=== PATIENT | male | born 1960 | race Two or more races ===

== ENCOUNTER 2018-01-10 10:39 | Emergency (ER) | payer OTHER ==
[~2018-01-10] VITALS: Ht 165.1 cm; Wt 102.1 kg
[2018-01-10 10:50] VITALS: BP 143/88
--- NOTE | 2018-01-10 11:10 | NUR ---
57/M PRESENT TO ER C/O RT EYE IRRITATION AND FOLLOW UP x YESTERDAY @ 1100. PT STATES HE ACCIDENTALLY GOT RADIATOR FLUID ON HIS EYES YESTERDAY AROUND 1100. PT STATES HE WAS SEEN IN URGENT CARE YESTERDAY FOR SAME S/SX AND WAS SENT HOME WITH "EYE DROPS AND TOPICAL CREAM MEDICATION" AND EYE IRRIGATION DONE AT URGENT CARE. PT STS HE "FEELS A LOT BETTER". WENT HERE FOR FOLLOW UP. PT DENIES ANY CHANGES IN VISION OR PAIN. REDNESS NOTED TO FOREHEAD AND PERIORBITAL AREA AND NOSE. PT IS AOX4 WITH STEADY GAIT. RR ARE EVEN AND UNLABORED. NO ACUTE DISTRESS. ER MD CORADO BY BEDSIDE EXAMINING PT. ALL NEEDS MET AT THIS TIME. WILL CONTINUE TO MONITOR.
[2018-01-10 11:30] VITALS: BP 139/88
--- NOTE | 2018-01-10 11:39 | NUR ---
Patient discharged with v/s stable. Written and verbal after care instructions given and explained. Patient verbalized understanding. Ambulatory with steady gait. All questions addressed prior to discharge. Advised to follow up with PMD.
== END 2018-01-10 11:39 | disposition home or self-care (01) ==
LOC: MED 10:39
DX: Z77.098 Contact with and (suspected) exposure to other hazardous, chiefly nonmedicinal, chemicals (principal); H57.8 Other specified disorders of eye and adnexa
CPT/HCPCS: 99281

== ENCOUNTER 2023-06-27 09:23 | Inpatient (IN) | payer OTHER ==
[~2023-06-27] VITALS: Ht 165.1 cm; Wt 110.2 kg
[2023-06-27 09:31] VITALS: BP 153/100; PULSE 99; RESP 18; TEMP 98.2; O2SAT 98
[2023-06-27 10:22] LABS: BASOPHILS % (AUTO) 0.2 % (0.0-2.0); EOSINOPHILS % (AUTO) 0.1 % (0.0-4.0); HEMATOCRIT 47.4 % (36-52); HEMOGLOBIN 15.9 g/dL (12.0-18.0); LYMPHOCYTES # (AUTO) 1.1 K/uL (2.0-11.5); LYMPHOCYTES % (AUTO) 11.9 % (20.5-51.1); MEAN CORPUSCULAR HEMOGLOBIN 28 pg (27-31); MEAN CORPUSCULAR HGB CONC 34 g/dL (33-37); MEAN CORPUSCULAR VOLUME 83.9 fL (80-94); MONOCYTES # (AUTO) 0.9 K/uL (0.8-1.0); MONOCYTES % (AUTO) 10.2 % (1.7-9.3); NEUTROPHILS # (AUTO) 6.9 K/uL (1.8-7.7); NEUTROPHILS % (AUTO) 77.6 % (42.2-75.2); PLATELET COUNT (AUTO) 319 K/uL (140-450); RED BLOOD CELL COUNT(AUTO) 5.65 MIL/uL (4.20-6.10); RED CELL DISTRIBUTION WIDTH 15.5 % (11.6-13.7); WHITE BLOOD COUNT (AUTO) 8.9 K/uL (4.8-10.8)
[2023-06-27 10:34] LABS: ALBUMIN 3.5 g/dL (3.4-5.0); ANION GAP 14.5 (8-16); CALCIUM 8.6 mg/dL (8.5-10.1); CARBON DIOXIDE 24.6 mmol/L (21-32); POTASSIUM 3.1 mmol/L (3.5-5.1); TOTAL BILIRUBIN 1.1 mg/dL (0.0-1.0)
[2023-06-27] MEDS ORDERED: MAG SULF 2000 MG/WATER PREMIX 50 ML IV PRN (13:20)
[2023-06-27] MEDS ORDERED: ZOLPIDEM 5 MG TAB PO PRN (13:20)
[2023-06-27] MEDS ORDERED: MORPHINE SULFATE 4 MG/ML SYR IVP PRN (13:20)
[2023-06-27] MEDS ORDERED: ACETAMINOPHEN 325 MG TAB PO PRN (13:20)
[2023-06-27] MEDS ORDERED: POTASSIUM CHLORIDE 10 MEQ TABER PO PRN (13:20)
[2023-06-27] MEDS ORDERED: HYDROcodone/APAP 5/325 MG 1 TAB TAB PO PRN (13:20)
[2023-06-27] MEDS ORDERED: MAGNESIUM OXIDE 400 MG TAB PO PRN (13:20)
[2023-06-27] MEDS ORDERED: KCL 20 MEQ IN 100 mL PREMIX 200 ML IV PRN (13:20)
[2023-06-27] MEDS ORDERED: ONDANSETRON 4 MG/2 ML VIAL IVP PRN (13:20)
[2023-06-27] MEDS: NACL 0.9% 1,000 ML IV SCH (13:37)
[2023-06-27 15:30] VITALS: PULSE 94; RESP 19; O2SAT 95
[2023-06-27 18:02] LABS: APPEARANCE,URINE CLEAR (CLEAR); BILIRUBIN,URINE NEGATIVE (NEGATIVE); BLOOD, URINE TRACE-I (NEGATIVE); COLOR,URINE YELLOW (YELLOW); LEUKOCYTE ESTERASE ,URINE NEGATIVE (NEGATIVE); NITRITE, URINE NEGATIVE (NEGATIVE); PROTEIN,URINE NEGATIVE (NEGATIVE); UGLUCOSE NEGATIVE (NEGATIVE); UROBILINOGEN,URINE 0.2 EU/dL (0.2 - 1)
[2023-06-27 18:20] LABS: BACTERIA,URINE FEW /HPF (None Seen); MUCUS,URINE None Seen /LPF (None Seen); RBC,URINE 0-5 /HPF (0-5); SQUAMOUS EPITHELIAL CELL,UR 0-3 (FEW) /LPF (0-3 (FEW)); TRICHOMONAS,URINE None Seen /HPF (None Seen); WBC,URINE 0-5 /HPF (0-5); WHITE BLOOD CELL CASTS,URINE None Seen /LPF (None Seen); YEAST,URINE None Seen /HPF (None Seen)
[2023-06-27] MEDS ORDERED: KCL 20 MEQ IN 100 mL PREMIX 200 ML IV SCH (18:50)
[2023-06-27 19:15] LABS: INR 1.02 (0.8-1.2); PARTIAL THROMBOPLASTIN TIME 32.1 secs (22-35.6); PROTHROMBIN TIME 10.7 secs (10.8-13.4)
[2023-06-27 20:00] VITALS: BP 138/89; PULSE 78; RESP 18; TEMP 98.6; O2SAT 97
[2023-06-27] MEDS: metroNIDAZOLE 500 MG/NS PREMIX 100 ML IV SCH (22:46)
[2023-06-28] VITALS (7 sets, daily range): BP systolic 117–139; BP diastolic 82–98; PULSE 72–94; RESP 17–19; TEMP 97.4–98.8; O2SAT 94–97
[2023-06-28] MEDS: NACL 0.9% 1,000 ML IV SCH ×2 (01:50→03:11)
[2023-06-28] MEDS: metroNIDAZOLE 500 MG/NS PREMIX 100 ML IV SCH ×3 (05:48→21:30)
[2023-06-28 06:59] LABS: ANION GAP 13.2 (8-16); CALCIUM 7.6 mg/dL (8.5-10.1); CARBON DIOXIDE 23.1 mmol/L (21-32); CREATININE 0.9 mg/dL (0.6-1.3); MAGNESIUM 2.1 mg/dL (1.8-2.4); PHOSPHORUS 2.8 mg/dL (2.5-4.9); POTASSIUM 3.3 mmol/L (3.5-5.1)
[2023-06-28 07:22] LABS: BASOPHILS % (AUTO) 0.3 % (0.0-2.0); EOSINOPHILS % (AUTO) 0.2 % (0.0-4.0); HEMATOCRIT 43.1 % (36-52); HEMOGLOBIN 14.1 g/dL (12.0-18.0); LYMPHOCYTES # (AUTO) 0.9 K/uL (2.0-11.5); LYMPHOCYTES % (AUTO) 13.2 % (20.5-51.1); MEAN CORPUSCULAR HEMOGLOBIN 28 pg (27-31); MEAN CORPUSCULAR HGB CONC 33 g/dL (33-37); MEAN CORPUSCULAR VOLUME 84.3 fL (80-94); MONOCYTES # (AUTO) 0.9 K/uL (0.8-1.0); MONOCYTES % (AUTO) 12.3 % (1.7-9.3); NEUTROPHILS # (AUTO) 5.2 K/uL (1.8-7.7); PLATELET COUNT (AUTO) 271 K/uL (140-450); RED BLOOD CELL COUNT(AUTO) 5.11 MIL/uL (4.20-6.10); RED CELL DISTRIBUTION WIDTH 15.3 % (11.6-13.7)
[2023-06-28] MEDS ORDERED: BUPIVACAINE-MPF 0.25% 30 ML VIAL INJ ONE (13:41)
[2023-06-28] MEDS ORDERED: LIDOCAINE/EPI MPF 1%1:200000 30 ML VIAL INJ ONE (14:59)
[2023-06-28] MEDS ORDERED: ONDANSETRON 4 MG/2 ML VIAL ONE (15:15)
[2023-06-28] MEDS ORDERED: SUCCINYLCHOLINE CHLORIDE 200 MG/10 ML VIAL IVP ONE ×2 (15:15→15:43)
[2023-06-28] MEDS ORDERED: SUGAMMADEX SODIUM 200 MG/2 ML VIAL IV ONE ×2 (15:15→17:34)
[2023-06-28] MEDS ORDERED: DEXAMETHASONE 4 MG/ML VIAL ONE ×2 (15:15→15:43)
[2023-06-28] MEDS ORDERED: HYDROmorphone PFS 2 MG/ML SYR ONE ×3 (15:15→16:50)
[2023-06-28] MEDS ORDERED: ceFAZolin 2,000 MG VIAL ONE (15:15)
[2023-06-28] MEDS ORDERED: fentaNYL citrate 0.05 MG/ML - 50mL vial IV ONE (15:15)
[2023-06-28] MEDS ORDERED: ROCURONIUM 50 MG/5 ML VIAL IV ONE ×3 (15:15→15:44)
[2023-06-28] MEDS ORDERED: DESFLURANE 240 ML BTL INH ONE (15:15)
[2023-06-28] MEDS ORDERED: PROPOFOL 200 MG/20 ML VIAL IV ONE ×2 (15:15→15:43)
[2023-06-28] MEDS ORDERED: fentaNYL citrate 0.05 MG/ML VIAL ONE (15:40)
[2023-06-28] MEDS ORDERED: LABETALOL 20 MG/4 ML VIAL IVP ONE (15:53)
[2023-06-28] MEDS: HYDROmorphone 1 MG/ML AMP IVP PRN (18:48)
[2023-06-28] MEDS: LACTATED RINGERS 1,000 ML IV SCH (18:50)
[2023-06-28 18:57] LABS: BASOPHILS % (AUTO) 0.1 % (0.0-2.0); HEMOGLOBIN 13.7 g/dL (12.0-18.0); LYMPHOCYTES # (AUTO) 0.5 K/uL (2.0-11.5); LYMPHOCYTES % (AUTO) 6.1 % (20.5-51.1); MEAN CORPUSCULAR HEMOGLOBIN 28 pg (27-31); MEAN CORPUSCULAR HGB CONC 33 g/dL (33-37); MEAN CORPUSCULAR VOLUME 84.8 fL (80-94); MONOCYTES # (AUTO) 0.4 K/uL (0.8-1.0); MONOCYTES % (AUTO) 4.6 % (1.7-9.3); NEUTROPHILS # (AUTO) 7.5 K/uL (1.8-7.7); NEUTROPHILS % (AUTO) 89.2 % (42.2-75.2); PLATELET COUNT (AUTO) 309 K/uL (140-450); RED BLOOD CELL COUNT(AUTO) 4.95 MIL/uL (4.20-6.10); RED CELL DISTRIBUTION WIDTH 15.6 % (11.6-13.7); WHITE BLOOD COUNT (AUTO) 8.4 K/uL (4.8-10.8)
[2023-06-28 19:05] LABS: ANION GAP 12.2 (8-16); CALCIUM 7.3 mg/dL (8.5-10.1); CARBON DIOXIDE 22.6 mmol/L (21-32); CREATININE 0.9 mg/dL (0.6-1.3); POTASSIUM 3.8 mmol/L (3.5-5.1)
[2023-06-28] MEDS ORDERED: ACETAMINOPHEN EXTRA STRENGTH 500 MG TAB PO SCH (21:00)
[2023-06-28] MEDS ORDERED: KETOROLAC 15 MG/ML VIAL IVP SCH (21:00)
[2023-06-28] MEDS: KETOROLAC 15 MG/ML VIAL IVP SCH (21:30)
[2023-06-29] VITALS (23 sets, daily range): BP systolic 114–146; BP diastolic 45–89; PULSE 70–97; RESP 13–27; TEMP 97.4–98.5; O2SAT 94–100
[2023-06-29] MEDS ORDERED: KETOROLAC 15 MG/ML VIAL IVP SCH ×2
[2023-06-29] MEDS: HYDROmorphone 1 MG/ML AMP IVP PRN ×2 (00:28→10:40)
[2023-06-29] MEDS: metroNIDAZOLE 500 MG/NS PREMIX 100 ML IV SCH ×3 (04:30→21:30)
[2023-06-29] MEDS: LACTATED RINGERS 1,000 ML IV SCH ×2 (04:30→14:28)
[2023-06-29] MEDS: KETOROLAC 15 MG/ML VIAL IVP SCH ×3 (04:32→21:34)
[2023-06-29 06:17] LABS: BASOPHILS % (AUTO) 0.1 % (0.0-2.0); HEMATOCRIT 38.7 % (36-52); HEMOGLOBIN 12.9 g/dL (12.0-18.0); LYMPHOCYTES # (AUTO) 0.5 K/uL (2.0-11.5); LYMPHOCYTES % (AUTO) 5.3 % (20.5-51.1); MEAN CORPUSCULAR HEMOGLOBIN 28 pg (27-31); MEAN CORPUSCULAR HGB CONC 33 g/dL (33-37); MEAN CORPUSCULAR VOLUME 84.7 fL (80-94); MONOCYTES # (AUTO) 0.9 K/uL (0.8-1.0); NEUTROPHILS # (AUTO) 7.4 K/uL (1.8-7.7); NEUTROPHILS % (AUTO) 84.6 % (42.2-75.2); PLATELET COUNT (AUTO) 261 K/uL (140-450); RED BLOOD CELL COUNT(AUTO) 4.57 MIL/uL (4.20-6.10); RED CELL DISTRIBUTION WIDTH 15.2 % (11.6-13.7); WHITE BLOOD COUNT (AUTO) 8.7 K/uL (4.8-10.8)
[2023-06-29 06:31] LABS: ANION GAP 13.3 (8-16); CALCIUM 7.4 mg/dL (8.5-10.1); CARBON DIOXIDE 23.8 mmol/L (21-32); CREATININE 0.9 mg/dL (0.6-1.3); POTASSIUM 4.1 mmol/L (3.5-5.1)
[2023-06-29 06:46] LABS: MAGNESIUM 1.9 mg/dL (1.8-2.4); PHOSPHORUS 3.4 mg/dL (2.5-4.9)
[2023-06-29] MEDS: ENOXAPARIN 40 MG/0.4 ML SYR SUBQ SCH (10:10)
[2023-06-29] MEDS: GABAPENTIN 300 MG CAP PO SCH ×3 (10:11→17:16)
[2023-06-29 16:06] LABS: BASOPHILS % (AUTO) 0.1 % (0.0-2.0); EOSINOPHILS % (AUTO) 0.1 % (0.0-4.0); HEMOGLOBIN 12.5 g/dL (12.0-18.0); LYMPHOCYTES # (AUTO) 0.8 K/uL (2.0-11.5); LYMPHOCYTES % (AUTO) 10.7 % (20.5-51.1); MEAN CORPUSCULAR HEMOGLOBIN 28 pg (27-31); MEAN CORPUSCULAR HGB CONC 33 g/dL (33-37); MEAN CORPUSCULAR VOLUME 84.7 fL (80-94); MONOCYTES # (AUTO) 0.8 K/uL (0.8-1.0); MONOCYTES % (AUTO) 11.1 % (1.7-9.3); NEUTROPHILS # (AUTO) 5.8 K/uL (1.8-7.7); PLATELET COUNT (AUTO) 295 K/uL (140-450); RED BLOOD CELL COUNT(AUTO) 4.49 MIL/uL (4.20-6.10); RED CELL DISTRIBUTION WIDTH 15.5 % (11.6-13.7); WHITE BLOOD COUNT (AUTO) 7.4 K/uL (4.8-10.8)
[2023-06-30] VITALS (13 sets, daily range): BP systolic 122–155; BP diastolic 64–109; PULSE 72–103; RESP 17–21; TEMP 97–99.3; O2SAT 92–98
[2023-06-30] MEDS: LACTATED RINGERS 1,000 ML IV SCH (04:00)
[2023-06-30] MEDS: metroNIDAZOLE 500 MG/NS PREMIX 100 ML IV SCH ×3 (04:24→21:44)
[2023-06-30 05:56] LABS: BASOPHILS % (AUTO) 0.2 % (0.0-2.0); EOSINOPHILS % (AUTO) 0.2 % (0.0-4.0); HEMATOCRIT 35.5 % (36-52); HEMOGLOBIN 11.8 g/dL (12.0-18.0); LYMPHOCYTES # (AUTO) 0.8 K/uL (2.0-11.5); LYMPHOCYTES % (AUTO) 11.4 % (20.5-51.1); MEAN CORPUSCULAR HEMOGLOBIN 28 pg (27-31); MEAN CORPUSCULAR HGB CONC 33 g/dL (33-37); MEAN CORPUSCULAR VOLUME 84.5 fL (80-94); MONOCYTES # (AUTO) 0.7 K/uL (0.8-1.0); MONOCYTES % (AUTO) 10.2 % (1.7-9.3); NEUTROPHILS # (AUTO) 5.5 K/uL (1.8-7.7); PLATELET COUNT (AUTO) 287 K/uL (140-450); RED CELL DISTRIBUTION WIDTH 15.8 % (11.6-13.7); WHITE BLOOD COUNT (AUTO) 7.1 K/uL (4.8-10.8)
[2023-06-30] MEDS: KETOROLAC 15 MG/ML VIAL IVP SCH ×3 (06:13→21:44)
[2023-06-30 06:29] LABS: ANION GAP 11.3 (8-16); CALCIUM 7.6 mg/dL (8.5-10.1); POTASSIUM 3.3 mmol/L (3.5-5.1)
[2023-06-30 06:36] LABS: MAGNESIUM 2.1 mg/dL (1.8-2.4); PHOSPHORUS 2.2 mg/dL (2.5-4.9)
[2023-06-30] MEDS: POTASSIUM CHL 20 MEQ/D5-1/2NS 1,000 ML IV SCH ×2 (06:45→16:30)
[2023-06-30] MEDS ORDERED: KCL 20 MEQ IN 100 mL PREMIX 200 ML IV ONE (06:50)
[2023-06-30] MEDS: GABAPENTIN 300 MG CAP PO SCH ×3 (09:31→16:40)
[2023-06-30] MEDS: ENOXAPARIN 40 MG/0.4 ML SYR SUBQ SCH (09:33)
[2023-06-30] MEDS: HYDROmorphone 1 MG/ML AMP IVP PRN (11:43)
[2023-07-01] VITALS (7 sets, daily range): BP systolic 118–136; BP diastolic 69–86; PULSE 75–105; RESP 18–19; TEMP 98.3–98.8; O2SAT 95–98
[2023-07-01] MEDS: KETOROLAC 15 MG/ML VIAL IVP SCH ×3 (05:47→20:20)
[2023-07-01] MEDS: metroNIDAZOLE 500 MG/NS PREMIX 100 ML IV SCH ×3 (05:47→20:20)
[2023-07-01] MEDS: POTASSIUM CHL 20 MEQ/D5-1/2NS 1,000 ML IV SCH ×3 (05:48→17:07)
[2023-07-01 06:33] LABS: BASOPHILS % (AUTO) 0.5 % (0.0-2.0); EOSINOPHILS # (AUTO) 0.2 K/uL (0-0.4); EOSINOPHILS % (AUTO) 2.2 % (0.0-4.0); HEMATOCRIT 31.9 % (36-52); HEMOGLOBIN 10.5 g/dL (12.0-18.0); LYMPHOCYTES % (AUTO) 14.8 % (20.5-51.1); MEAN CORPUSCULAR HEMOGLOBIN 28 pg (27-31); MEAN CORPUSCULAR HGB CONC 33 g/dL (33-37); MEAN CORPUSCULAR VOLUME 84.3 fL (80-94); MONOCYTES # (AUTO) 0.7 K/uL (0.8-1.0); NEUTROPHILS # (AUTO) 5.1 K/uL (1.8-7.7); NEUTROPHILS % (AUTO) 72.5 % (42.2-75.2); PLATELET COUNT (AUTO) 289 K/uL (140-450); RED BLOOD CELL COUNT(AUTO) 3.78 MIL/uL (4.20-6.10); RED CELL DISTRIBUTION WIDTH 15.4 % (11.6-13.7)
[2023-07-01 06:57] LABS: ANION GAP 12.2 (8-16); CALCIUM 7.2 mg/dL (8.5-10.1); CREATININE 0.8 mg/dL (0.6-1.3); POTASSIUM 3.2 mmol/L (3.5-5.1)
[2023-07-01 07:07] LABS: MAGNESIUM 1.9 mg/dL (1.8-2.4); PHOSPHORUS 2.3 mg/dL (2.5-4.9)
[2023-07-01] MEDS: GABAPENTIN 300 MG CAP PO SCH ×3 (08:19→17:07)
[2023-07-01] MEDS: ENOXAPARIN 40 MG/0.4 ML SYR SUBQ SCH (08:25)
[2023-07-01] MEDS ORDERED: GAUZE TP PRN (11:05)
[2023-07-01] MEDS: GAUZE TP SCH (13:06)
[2023-07-01] MEDS ORDERED: GABA300C55 PO (15:32)
[2023-07-01] MEDS ORDERED: AMOX-999 PO (15:34)
[2023-07-02] VITALS: BP 137/86; PULSE 102; PULSE 92; RESP 18; TEMP 97.9; O2SAT 98
[2023-07-02 04:00] VITALS: BP 127/88; PULSE 78; PULSE 81; RESP 18; TEMP 97.8; O2SAT 100
[2023-07-02] MEDS: metroNIDAZOLE 500 MG/NS PREMIX 100 ML IV SCH (04:53)
[2023-07-02] MEDS: KETOROLAC 15 MG/ML VIAL IVP SCH ×2 (04:54→12:28)
[2023-07-02 06:30] LABS: BASOPHILS % (AUTO) 0.6 % (0.0-2.0); EOSINOPHILS # (AUTO) 0.2 K/uL (0-0.4); EOSINOPHILS % (AUTO) 2.8 % (0.0-4.0); HEMATOCRIT 33.8 % (36-52); LYMPHOCYTES % (AUTO) 14.2 % (20.5-51.1); MEAN CORPUSCULAR HEMOGLOBIN 28 pg (27-31); MEAN CORPUSCULAR HGB CONC 32 g/dL (33-37); MONOCYTES # (AUTO) 0.7 K/uL (0.8-1.0); MONOCYTES % (AUTO) 10.3 % (1.7-9.3); NEUTROPHILS # (AUTO) 4.8 K/uL (1.8-7.7); NEUTROPHILS % (AUTO) 72.1 % (42.2-75.2); PLATELET COUNT (AUTO) 360 K/uL (140-450); RED BLOOD CELL COUNT(AUTO) 3.98 MIL/uL (4.20-6.10); RED CELL DISTRIBUTION WIDTH 15.4 % (11.6-13.7); WHITE BLOOD COUNT (AUTO) 6.7 K/uL (4.8-10.8)
[2023-07-02 06:31] LABS: ANION GAP 11.2 (8-16); CALCIUM 7.4 mg/dL (8.5-10.1); CARBON DIOXIDE 25.4 mmol/L (21-32); CREATININE 0.8 mg/dL (0.6-1.3); POTASSIUM 3.6 mmol/L (3.5-5.1)
[2023-07-02 06:41] LABS: MAGNESIUM 1.9 mg/dL (1.8-2.4); PHOSPHORUS 2.6 mg/dL (2.5-4.9)
[2023-07-02] MEDS: POTASSIUM CHL 20 MEQ/D5-1/2NS 1,000 ML IV SCH (07:03)
[2023-07-02 08:00] VITALS: BP 136/90; PULSE 85; PULSE 87; RESP 18; TEMP 98.1; O2SAT 96; O2SAT 97
[2023-07-02] MEDS: GABAPENTIN 300 MG CAP PO SCH ×3 (09:38→16:59)
[2023-07-02] MEDS: ENOXAPARIN 40 MG/0.4 ML SYR SUBQ SCH (09:42)
[2023-07-02] MEDS: GAUZE TP SCH (13:00)
== END 2023-07-02 17:35 | disposition home health service (06) | DRG 231 ==
LOC: MED 09:23 → MMU 13:18 → MTU 14:10 → MIC 06-28 17:33 → MTU 06-30 18:19
PROVIDERS: ADMIT Hospitalist; ATTEND Hospitalist
PROC: 0D1N0Z4 Bypass Sigmoid Colon to Cutaneous, Open Approach (ICD-10-PCS; 2023-06-28)
PROC: 0DNU0ZZ Release Omentum, Open Approach (ICD-10-PCS; 2023-06-28)
PROC: 0DBN0ZZ Excision of Sigmoid Colon, Open Approach (ICD-10-PCS; principal; 2023-06-28 13:15)
DX: K56.609 Unspecified intestinal obstruction, unspecified as to partial versus complete obstruction (principal); R65.10 Systemic inflammatory response syndrome (SIRS) of non-infectious origin without acute organ dysfunction; E87.1 Hypo-osmolality and hyponatremia; D49.0 Neoplasm of unspecified behavior of digestive system; I10 Essential (primary) hypertension; K66.0 Peritoneal adhesions (postprocedural) (postinfection)
CPT/HCPCS: 36415; 71045; 80048; 80053; 81001; 83690; 83735; 84100; 85025; 85610; 85730; 86886; 86900; 86901; 87081; 88307; 94010; 97112; 97116; 97163-GP; 97530; 99285; J0330; J0696; J1100; J1170; J1644; J1650; J1885; J2001; J2405; J2704; J3010; J3480; J3490; J7060; J7120; Q0092

== ENCOUNTER 2023-07-05 05:00 | Emergency (ER) | payer OTHER ==
[~2023-07-05] VITALS: Ht 165.1 cm; Wt 111.1 kg
[~2023-07-05 05:00] MED LIST: AMOX-999 PO; GABA300C55 PO
[2023-07-05 05:05] VITALS: BP 138/77; PULSE 90; RESP 17; TEMP 98.2; O2SAT 97
== END 2023-07-05 06:00 | disposition left against medical advice (07) ==
LOC: MED 05:00
DX: Z98.890 Other specified postprocedural states (principal); Z53.21 Procedure and treatment not carried out due to patient leaving prior to being seen by health care provider
CPT/HCPCS: 99281